=== PATIENT | male | born 1990 | race African-American/Black ===

== ENCOUNTER 2017-03-01 05:42 | Emergency (ER) | payer SELFPAY ==
[~2017-03-01] VITALS: Ht 185.4 cm; Wt 118.0 kg
[2017-03-01] MEDS ORDERED: METHYLPREDNISOLONE SOD SUCC 125 MG/2 ML VIAL IV STA (06:09)
[2017-03-01] MEDS ORDERED: ALBUTEROL (0.083%) 2.5MG/3ML NEB HHN STA (06:09)
[2017-03-01] MEDS ORDERED: IPRATROPIUM BROMIDE (0.02%) 0.5MG/2.5ML NEB HHN STA (06:09)
[2017-03-01] MEDS ORDERED: MAGNESIUM 2 G PREMIX 50 ML IV STA (06:09)
[2017-03-01] MEDS ORDERED: ALBUTEROL (0.083%) 2.5MG/3ML NEB HHN ONE (07:45)
[2017-03-01 07:50] VITALS: BP 128/67
== END 2017-03-01 08:29 | disposition home or self-care (01) ==
LOC: ER 05:42
DX: J45.901 Unspecified asthma with (acute) exacerbation (principal)
CPT/HCPCS: 71010; 94640; 94644; 96365; 96366; 96375; 99285; J2930; J3475; J7611; Z7610